=== PATIENT | male | born 1965 | race Caucasian/White ===

== ENCOUNTER 2021-11-26 18:10 | Emergency (ER) | payer MEDICAID ==
[~2021-11-26] VITALS: Ht 185.4 cm; Wt 95.5 kg
[2021-11-26 18:57] LABS: CLARITY,URINE SLIGHTLY CLOUDY (Clear); COLOR,URINE YELLOW (Yellow); GLUCOSE, URINE NEGATIVE (Neg); KETONES,URINE NEGATIVE (Neg); LEUKOCYTE ESTERASE ,URINE NEGATIVE (Neg); NITRITES, URINE NEGATIVE (Neg); OCCULT BLOOD,URINE TRACE-INTACT (Neg); PROTEIN,URINE 30 mg/dl (Neg); UROBILINOGEN,URINE 0.2 E.U/dL (0.2-1.0)
[2021-11-26 19:00] LABS: UA COLLECTION TYPE VOIDED
[2021-11-26 19:05] LABS: BACTERIA,URINE 1+ /HPF (Neg); MUCUS STRANDS NONE SEEN /LPF (Neg); SQUAMOUS EPITHELIAL CELL,UR FEW /LPF (FEW); WBC,URINE 20-30 /HPF (0-4)
[2021-11-26 19:06] LABS: SPERM MODERATE /HPF (NEGATIVE); YEAST FEW /HPF (NEGATIVE)
--- NOTE | 2021-11-26 19:59 | NUR ---
DR. JAUREGUI AT BEDSIDE.
[2021-11-26] MEDS ORDERED: DOXYCYCLINE 100MG CAPSULE PO STA (20:06)
[2021-11-26] MEDS ORDERED: acetaminophen 325mg tablet PO ONE (20:10)
[2021-11-26] MEDS ORDERED: ketorolac trometh inj. 60 MG/2 ML VIAL IM ONE (20:10)
[2021-11-26] MEDS ORDERED: CefTRIAXone 1000mg IM Kit (w/lidocaine diluent) IM ONE (20:10)
[2021-11-26] MEDS ORDERED: ondansetron 4mg rapidly disintigrating tab PO ONE (20:10)
[2021-11-26] MEDS ORDERED: ONDA4TAB12 PO (20:44)
[2021-11-26] MEDS ORDERED: DOXY100C76 PO (20:44)
[2021-11-26 20:53] VITALS: BP 132/85
== END 2021-11-26 20:55 | disposition home or self-care (01) ==
LOC: ER 18:11
DX: N50.3 Cyst of epididymis (principal); N43.3 Hydrocele, unspecified; N45.1 Epididymitis; N50.811 Right testicular pain; R35.0 Frequency of micturition; Z79.2 Long term (current) use of antibiotics; Z79.899 Other long term (current) drug therapy
CPT/HCPCS: 76870; 81001; 87088; 93976; 96372; 99284; J0696; J1885

== ENCOUNTER 2025-02-07 10:09 | Emergency (ER) | payer MEDICAID ==
[~2025-02-07] VITALS: Ht 185.4 cm; Wt 102.3 kg
[~2025-02-07 10:09] MED LIST: ONDA-243 PO
[2025-02-07 10:15] VITALS: BP 156/91; PULSE 92; RESP 18; O2SAT 95
[2025-02-07] MEDS: LIDOcaine 1% W/epiNEPHrine 1:100,000 20ml vial IJ ONE (11:12)
--- NOTE | 2025-02-07 11:50 | Physician Documentation ---
History of Present Illness ~ Chief Complaint: Abscess Stated Complaint: ABSCESS Time Seen by MD: 10:20 Primary Medical Doctor: NONE HPI This is a 59-year-old male who presents with an area of pain and swelling to his left forearm present for the past four days, patient additionally reports an area of swelling to his right antecubital that developed after he used injection drugs in the area two days prior. Patient reports no fevers, patient reports no other acute symptoms or concerns. Tetanus Within 5 Years: Yes Medication Reconciliation Allergies: Coded Allergies: No Known Allergies (Unverified , 11/26/21) Scheduled Cephalexin*Monohydrate* (Keflex*), 1 CAP PO QID ONDANSETRON ODT 4mg tablet (Ondansetron Odt), 1 TABLET PO Q6H Past Medical History Past Medical History: No Pertinent History Past Surgical History: noncontributory Lives In: Home Occupation: employed Review of Systems ROS Pain and swelling to arms as stated above in the HPI, otherwise all systems are reviewed and negative. Physical Exam Vital Signs: Temperature: 97.9, Source: Temporal, Heart Rate: 92, Respiratory Rate: 18, BP: 156/91, Pulse Oximetry: 95, Weight: 102.270 Oxygen Flow Rate: 0 Physical Exam VITALS: Reviewed and as above. GENERAL: Alert, nontoxic appearing, no apparent distress. RESPIRATORY: No increased work of breathing, no respiratory distress, speaking in full clear sentences SKIN: Posterior aspect of the left forearm 4 cm x 5 cm area of erythema and induration without fluctuance. Right antecubital area a 1.5 cm x 1.5 cm semi mobile mass without erythema to overlying skin. Bedside ultrasound of right antecubital area demonstrated area that appears to be a hematoma. Progress Results/Orders Results/Orders Vital Signs 02/07/25 02/07/25 10:15 12:13 Temp 97.9 97.9 Pulse 92 Resp 18 B/P (MAP) 156/91 Pulse Ox 95 O2 Flow Rate 0 Medical Decision Making Findings This is a 59-year-old male who presented with an area of pain and redness to his left forearm and area of swelling to his right antecubital, the left forearm was noted to have erythema with induration without fluctuance consistent with cellulitis, the right antecubital area appeared to be a hematoma likely due to patient's IV drug use. Under ultrasound guidance and needle was utilized to aspirate the area with a small amount of blood withdrawn further giving evidence that this is a hematoma, after the procedure bleeding was well controlled with a piece of gauze and tape. Patient is otherwise well-appearing and remainder of physical exam was benign, patient is appropriate for outpatient follow up. Patient started on course of outpatient antibiotics for cellulitis of the left forearm and given home care instructions and return to care precautions. Differential Dx:Considerations: Include: Abscess, Bacteremia, Erysipelas, Gas gangrene Departure Time of Disposition: 11:52 Disposition: 01 HOME / SELF CARE / HOMELESS Impression: Primary Impression: Cellulitis Qualified Codes: L03.114 - Cellulitis of left upper limb Additional Impression: Hematoma Condition: Improved Discharge Instructions: Cellulitis, Adult, [id number], Hematoma, [id number] Additional Instructions: Please keep the area clean and dry, take the antibiotics as prescribed. You may use ibuprofen and or Tylenol as needed for pain by the [id number] packaging. Please use warm compresses on the area to your right elbow to help the swelling go down. Please follow up with your primary care provider in the next few days. Please return to the emergency department for any new or worsening concerning symptoms. Referrals: NO PRIMARY CARE PROVIDER (PCP) Prescriptions Cephalexin*Monohydrate* (Keflex*) 500 Mg Capsule 1 CAP PO QID, #28 CAP Prov: FOSTER CARBAJAL 02/07/25 Education Educated: Patient Educated regarding: diagnosis, treatment, prognosis, need for follow up Signature Scribe Signature: No scribe Attestation: The note accurately reflects work and decisions made by me.ABBY Nunez 02/07/25 20:41 FOSTER CARBAJAL Feb 07, 2025 11:50 ANDRES BRADLEY MD Feb 09, 2025 07:35
[2025-02-07] MEDS ORDERED: CEPH-585 PO (11:52)
[2025-02-07 12:13] VITALS: TEMP 97.9
== END 2025-02-07 12:14 | disposition home or self-care (01) ==
LOC: ER 10:10
DX: S50.12XA Contusion of left forearm, initial encounter (principal); L03.114 Cellulitis of left upper limb; X58.XXXA Exposure to other specified factors, initial encounter; Y93.89 Activity, other specified; Y92.89 Other specified places as the place of occurrence of the external cause; Y99.8 Other external cause status
CPT/HCPCS: 10160; 99284; A6449